=== PATIENT | male | born 1995 | race Caucasian/White ===

== ENCOUNTER 2020-09-01 18:59 | Emergency (ER) | payer SELFPAY ==
[2020-09-02 08:46] LABS: SARS-CoV-2 MS2 Positive; SARS-CoV-2 N Gene Negative; SARS-CoV-2 S Gene Negative; SARS-CoV-2 by NAA Not Detected (NotDetected); SARS-CoV-2 orf1ab Negative
== END 2020-09-01 20:40 | disposition home or self-care (01) ==
LOC: ERS 18:59
DX: J02.9 Acute pharyngitis, unspecified (principal); Z20.828 Contact with and (suspected) exposure to other viral communicable diseases; F32.9 Major depressive disorder, single episode, unspecified; F41.9 Anxiety disorder, unspecified; F25.9 Schizoaffective disorder, unspecified; Z87.891 Personal history of nicotine dependence
CPT/HCPCS: 87081; 87430; 87635; 99283; U0003